=== PATIENT | female | born 1950 | race Caucasian/White ===

== ENCOUNTER 2022-12-09 17:32 | Inpatient (IN) | payer BC, MEDICAID ==
[~2022-12-09] VITALS: Ht 167.6 cm; Wt 70.6 kg
[2022-12-09 17:53] LABS: HEMATOCRIT. 38.1 % (36.0-48.0); HEMOGLOBIN. 12.8 g/dL (12.0-16.0); LYMPHOCYTES % 26.1 % (20.0-50.0); MEAN CORPUSCULAR HEMOGLOBIN 27.3 pg (28.0-32.0); MEAN CORPUSCULAR VOLUME 81.4 fL (81.0-99.0); MEAN PLATELET VOLUME 8.4 fl (7.4-10.4); MONOCYTES % 4.6 % (2.0-8.0); NEUTROPHILS % 67.3 % (40.0-76.0); PLATELET 251 x1000/uL (130-400); RED BLOOD CELL COUNT 4.68 mill/uL (4.2-5.4); RED CELL DISTRIBUTION WIDTH 14.9 % (11.6-14.6)
[2022-12-09 18:00] LABS: CHLORIDE 112 mEq/L (98-107)
[2022-12-09 18:06] LABS: ETHANOL BLOOD < 10 mg/dL
[2022-12-09] MEDS ORDERED: IOHEXOL-350 100 ML BOTTLE ONE (18:24)
[2022-12-09 18:29] LABS: CLARITY URINE CLEAR (CLEAR); COLOR URINE YELLOW (YELLOW); KETONES URINE NEGATIVE (NEGATIVE); LEUKOCYTE ESTERASE URINE NEGATIVE (NEGATIVE); NITRITE URINE NEGATIVE (NEGATIVE); OCCULT BLOOD URINE NEGATIVE (NEGATIVE); PH URINE 7.5 (4.5-8.0); PROTEIN URINE NEGATIVE (NEGATIVE); SPECIFIC GRAVITY URINE 1.007 (1.005-1.030); UROBILINOGEN URINE 0.2 E.U./dL (0.2-1.0)
[2022-12-09 18:52] LABS: *AMPHETAMINES SCREEN URINE NEGATIVE (NEGATIVE); *BARBITURATES SCREEN URINE NEGATIVE (NEGATIVE); *BENZODIAZEPINES SCREEN URINE NEGATIVE (NEGATIVE); *COCAINE SCREEN URINE NEGATIVE (NEGATIVE); CANNABINOID URINE SCREEN NEGATIVE (NEGATIVE); METHADONE URINE SCREEN NEGATIVE (NEGATIVE); OPIATES URINE SCREEN NEGATIVE (NEGATIVE); PHENCYCLIDINE URINE SCREEN NEGATIVE (NEGATIVE)
[2022-12-09] MEDS ORDERED: CLONIDINE 0.2MG TABLET PO ONE (19:00)
[2022-12-09] MEDS ORDERED: KETOROLAC 15MG/ML VIAL IV ONE (19:00)
[2022-12-09] MEDS ORDERED: ACETAMINOPHEN 325MG TABLET PO ONE (19:00)
[2022-12-09] MEDS ORDERED: NITROGLYCERIN OINT 1GM/INCH UDPKT TD ONE (20:00)
[2022-12-09] MEDS ORDERED: CLONIDINE 0.1MG TABLET PO ONE (20:00)
[2022-12-09] MEDS ORDERED: LABETALOL 5MG/ML SYR 20 MG/4 ML SYRINGE IV ONE (21:00)
[2022-12-10 12:00] VITALS: BP 157/66
[2022-12-10] MEDS ORDERED: ACETAMINOPHEN 325MG TABLET PO PRN (12:30)
[2022-12-10] MEDS ORDERED: ONDANSETRON HCL 4MG/2ML INJ IV PRN (12:30)
[2022-12-10] MEDS ORDERED: MECLIZINE 25MG TABLET PO PRN (12:30)
[2022-12-10] MEDS ORDERED: AMLODIPINE 5MG TABLET PO SCH (13:45)
[2022-12-10 16:00] VITALS: BP 107/65
[2022-12-10 16:38] VITALS: BP 107/65
== END 2022-12-10 18:15 | disposition home or self-care (01) | DRG 74 ==
LOC: ER 17:32 → MICUSO 22:11 → EDBEDREQSVC 22:13 → EDBEDREQTM 22:13 → EDBEDREQ 22:13 → 7EST 12-10 11:34
PROVIDERS: ADMIT Internal Medicine; ATTEND Internal Medicine
DX: G90.8 Other disorders of autonomic nervous system (principal); E44.1 Mild protein-calorie malnutrition; G93.40 Encephalopathy, unspecified; E87.6 Hypokalemia; I16.0 Hypertensive urgency; I10 Essential (primary) hypertension; Z88.0 Allergy status to penicillin; Z68.25 Body mass index [BMI] 25.0-25.9, adult; Z91.14 Patient's other noncompliance with medication regimen
CPT/HCPCS: 36415; 70496; 70498; 70551; 71045; 80053; 80305; 80320; 81003; 85025; 93005; 99285; J1885; J3490; Q9967; G0480